=== PATIENT | female | born 1935 | race Caucasian/White ===

== ENCOUNTER 2021-01-30 21:22 | Emergency (ER) | payer MEDICARE, BC ==
[~2021-01-30] VITALS: Ht 162.6 cm; Wt 54.5 kg
[2021-01-30 21:29] VITALS: BP 178/74
[2021-01-30] MEDS ORDERED: diphenhydrAMINE 25mg capsule PO ONE (22:05)
[2021-01-30] MEDS ORDERED: predniSONE 20 mg tablet PO ONE (22:05)
[2021-01-30] MEDS ORDERED: cephalexin 250mg capsule PO ONE (22:10)
[2021-01-30] MEDS ORDERED: CEPH250T PO (22:16)
== END 2021-01-30 22:36 | disposition home or self-care (01) ==
LOC: ER 21:23
DX: S60.464A Insect bite (nonvenomous) of right ring finger, initial encounter (principal); L03.011 Cellulitis of right finger; Z79.2 Long term (current) use of antibiotics; W57.XXXA Bitten or stung by nonvenomous insect and other nonvenomous arthropods, initial encounter; Y93.89 Activity, other specified; Y92.89 Other specified places as the place of occurrence of the external cause; Y99.8 Other external cause status
CPT/HCPCS: 99284; J7512; Q0163